=== PATIENT | female | born 1985 | race Caucasian/White ===

== ENCOUNTER 2020-02-06 09:16 | Day surgery (SDC) | payer OTHER ==
[~2020-02-06] VITALS: Ht 170.2 cm; Wt 76.1 kg
[2020-02-06 10:06] VITALS: BP 112/69
[2020-02-06] MEDS ORDERED: LACTATED RINGERS 1,000 ML IV SCH (10:19)
[2020-02-06 10:26] LABS: BASOPHILS # (AUTO) 0.05 x10^3/uL (0-0.1); BASOPHILS % (AUTO) 1 % (0-1); EOSINOPHILS # (AUTO) 0.22 x10^3/uL (0-0.4); EOSINOPHILS % (AUTO) 3 % (1-7); LYMPHOCYTES # (AUTO) 1.66 x10^3/uL (1-3.4); LYMPHOCYTES % (AUTO) 21 % (22-44); MD NO; MEAN CORPUSCULAR HEMOGLOBIN 30.4 pg (27.0-34.8); MEAN CORPUSCULAR HGB CONC 33.2 g/dL (32.4-35.8); MEAN CORPUSCULAR VOLUME 91.6 fL (80-100); MEAN PLATELET VOLUME 7.8 fL (7.4-10.4); MONOCYTES # (AUTO) 0.53 x10^3/uL (0.2-0.8); MONOCYTES % (AUTO) 7 % (2-9); NEUTROPHILS # (AUTO) 5.34 x10^3/uL (1.8-6.8); NEUTROPHILS % (AUTO) 69 % (42-75); PLATELET COUNT 292 x10^3/uL (130-400); RED BLOOD COUNT 4.59 x10^6/uL (3.82-5.3); RED CELL DISTRIBUTION WIDTH 13.1 % (9.6-15.2)
[2020-02-06] MEDS ORDERED: PNV PO (10:29)
[2020-02-06] MEDS ORDERED: ALPR1TAB2 PO (10:29)
[2020-02-06] MEDS ORDERED: CALC-112 PO (10:29)
[2020-02-06] MEDS ORDERED: CARI350T PO (10:29)
[2020-02-06] MEDS ORDERED: CHLORHEXIDINE 15 ML UDC MM ONE (10:30)
[2020-02-06] MEDS ORDERED: LIDOCAINE-MPF 1%, 2ML ONE (10:47)
[2020-02-06] MEDS ORDERED: MIDAZOLAM 1 MG/ML, 2ML ONE (11:29)
[2020-02-06] MEDS ORDERED: FENTANYL PF 100 MCG/2ML IV PRN (11:30)
[2020-02-06] MEDS ORDERED: ONDANSETRON 2MG/ML, 2ML IVPush PRN (11:30)
[2020-02-06] MEDS ORDERED: MEPERIDINE/PF 25MG/0.5ML IVPush PRN (11:30)
[2020-02-06] MEDS ORDERED: hydrALAzine 20 MG/ML, 1ML IV PRN (11:30)
[2020-02-06] MEDS ORDERED: HYDROmorphone 1 MG/ML, 1ML INJ IVPush PRN (11:30)
[2020-02-06] MEDS ORDERED: FENTANYL PF 250 MCG/5ML ONE (11:30)
[2020-02-06] MEDS ORDERED: LABETALOL 5MG/ML, 20ML IV PRN (11:30)
[2020-02-06] MEDS ORDERED: PROMETHAZINE 25 MG/ML, 1ML IVPush PRN (11:30)
[2020-02-06] MEDS ORDERED: ACETAMINOPHEN 325 MG TABLET PO PRN (11:30)
[2020-02-06] MEDS ORDERED: OXYcodone 5 MG/5 ML ORAL.SOL UDC PO PRN (11:30)
[2020-02-06] MEDS ORDERED: MISOPROSTOL 200 MCG TABLET ONE (12:02)
[2020-02-06] MEDS ORDERED: SILVER NITRATE STICK TP ONE (12:02)
[2020-02-06] MEDS ORDERED: DOXYCYCLINE 100 MG VIAL ONE (12:02)
[2020-02-06] MEDS ORDERED: OXYTOCIN 10 UNITS/ML, 1ML ONE (12:02)
[2020-02-06] MEDS ORDERED: METHYLERGONOVINE 0.2 MG/ML IM ONE (12:03)
[2020-02-06] MEDS ORDERED: PROPOFOL 10 MG/ML, 20ML ONE ×2 (12:46→13:01)
[2020-02-06] MEDS ORDERED: DEXAMETHASONE 4 MG/ML, 1ML ONE ×2 (12:51)
[2020-02-06] MEDS ORDERED: ONDANSETRON 2MG/ML, 2ML ONE (13:01)
[2020-02-06] MEDS ORDERED: KETOROLAC 30 MG/1 ML ONE ×2 (13:07→13:40)
[2020-02-06] MEDS ORDERED: MEPERIDINE/PF 50 MG/ML ONE (13:23)
[2020-02-06] MEDS ORDERED: KETOROLAC 30 MG/1 ML IVPush ONE (14:00)
== END 2020-02-06 15:47 | disposition home or self-care (01) ==
LOC: OUT 09:16
PROVIDERS: ATTEND Obstetrics & Gynecology
DX: O02.1 Missed abortion (principal); Z79.899 Other long term (current) drug therapy; Z90.49 Acquired absence of other specified parts of digestive tract; Z98.890 Other specified postprocedural states
CPT/HCPCS: 36415; 59820; 85025; 86850; 86900; 88305; J1100; J1885; J2175; J2210; J2250; J2405; J2704; J3010; J7120; J2590